=== PATIENT | male | born 1995 | race Caucasian/White ===

== ENCOUNTER 2018-09-03 16:19 | Emergency (ER) | payer MEDICAID ==
[~2018-09-03] VITALS: Ht 177.8 cm; Wt 80.3 kg
[2018-09-03 16:49] VITALS: Ht 177.8 cm; Wt 80.3 kg
[2018-09-03 17:41] VITALS: BP 132/79
== END 2018-09-03 17:41 | disposition home or self-care (01) ==
LOC: ED 16:19
DX: J01.90 Acute sinusitis, unspecified (principal)